=== PATIENT | male | born 1985 | race Two or more races ===

== ENCOUNTER 2020-11-17 21:07 | Emergency (ER) | payer SELFPAY ==
[~2020-11-17] VITALS: Ht 177.8 cm; Wt 76.0 kg
[2020-11-17 21:22] VITALS: BP 136/88
[2020-11-17] MEDS ORDERED: NAPR-682 PO (22:23)
[2020-11-17] MEDS ORDERED: METH4TAB2 PO (22:23)
--- NOTE | 2020-11-17 22:23 | PHYS DOC ---
Past Medical History Past Medical History: No Pertinent History Past Surgical History: No Surgical History Smoking Status: Never Smoker Alcohol Use: None General Adult EDM: Chief Complaint: Loss of taste and smell, headache, body, coughing HPI: HPI: 35-year-old male with no significant medical history comes to the emergency department complaining of a flulike illness, he says over the past 2 to 3 days he has had fever, body aches, cough that is nonproductive, dull and throbbing bifrontal headache, loss of taste and smell, fevers, chills, no abdominal or chest pain, no known history of cardiac disease or history of thromboembolism. He was unvaccinated to coronavirus 19 unfortunately Patient is [place]-speaking so history was obtained with a junior automation engineer Review of Systems: Review of Systems: Constitutional: Positive for fever, chills and body aches Eyes: Denies change in visual acuity. [] HENT: Denies nasal congestion or sore throat. [] Respiratory: Positive for cough or shortness of breath. [] Cardiovascular: Denies chest pain or edema. [] GI: Denies abdominal pain, nausea, vomiting, bloody stools or diarrhea. [] : Denies dysuria. [] Musculoskeletal: Denies back pain or joint pain. [] Integument: Denies rash. [] Neurologic: Positive for headache, no focal weakness or sensory changes. [] Endocrine: Denies polyuria or polydipsia. [] Lymphatic: Denies swollen glands. [] Psychiatric: Denies depression or anxiety. [] Heart Score: C/O Chest Pain: No Risk Factors: Risk Factors: DM, Current or recent (<one month) smoker, HTN, HLP, family history of CAD, obesity. Risk Scores: Score 0 - 3: 2.5% MACE over next 6 weeks - Discharge Home Score 4 - 6: 20.3% MACE over next 6 weeks - Admit for Clinical Observation Score 7 - 10: 72.7% MACE over next 6 weeks - Early Invasive Strategies Allergies: Allergies: Allergies Coded Allergies Type Severity Reaction Last Updated Verified No Known Drug Allergies 11/17/20 No Physical Exam: PE: Gen-well appearing, no acute distress Head: Normocephalic/Atraumatic ENT: atraumatic, PERRLA, EOMI, oropharynx clear Neck: supple, full ROM/strength, no JVD, no nuchal rigidity Lungs: no distress, speaks in full sentences, Clear to auscultation bilaterally CV: reg rate, rhythm, no murmus/rubs/gallops, peripheral pulses equal in all extremities Abdomen: soft/nontender, no guarding/rebound tenderness, no rigidity, non distended, normoactive bowel sounds Musculoskeletal: full ROM/strength in all extremities, atraumatic, no swelling Back: full range of motion/strength Skin: intact, no rashes Lymph: no gross SANDRITA Neuro: alert and oriented x 4, CN 2-12 grossly intact, Motor strength is 5/5 in all extremities, no focal sensory deficits, no focal ataxia, ambulatory with steady gait Psych: normal mood/affect Current Patient Data: Labs: Laboratory Tests Test 11/17/20 21:36 SARS-CoV-2 Antigen (Rapid) Negative (NEGATIVE) Vital Signs: Vital Signs Date Time Temp Pulse Resp B/P (MAP) Pulse Ox O2 Delivery O2 Flow Rate FiO2 11/17/20 21:22 98.2 82 16 136/88 99 Room Air 98.2 EKG: EKG: [] Radiology/Procedures: Radiology/Procedures: [] Course & Med Decision Making: Course & Med Decision Making Pertinent Labs and Imaging studies reviewed. (See chart for details) [] 35-year-old male comes to the emergency department with a flulike illness highly suspicious for COVID-19 infection, he is afebrile nontoxic-appearing, differential includes but not limited to influenza, another viral upper respiratory infection, unlikely any acute intracranial bacterial infection, unlikely any intra-abdominal process, unlikely ACS, PE, dissection, exam is benign, O2 sat is 99%, will do a rapid Covid test and will give him some ibuprofen for symptoms as well as some Zofran Reevaluation at 10:30 PM: Patient is feeling better, the Covid test was negative although I am highly suspicious that it is inaccurate so I will order him a PCR test, start him on steroids and antipyretics and refer him to not only quarantine at home for 10 days with to follow-up with primary care Patient was seen in the ED for symptomatology and exam findings concerning for COVID-19 infection and although the rapid antigen test is negative I am sending a PCR out of a high index of suspicion, there is no apparent evidence of any emergency medical pathology at this time, patient was advised follow-up with their primary care provider /physician in the next 24-48 hours and to return to the ED before then if any new or worsening / concerning symptoms had developed. All questions and concerns were addressed at time of disposition Joe Disclaimer: Joe Disclaimer: This electronic medical record was generated, in whole or in part, using a voice recognition dictation system. Departure Departure Impression: Primary Impression: Fever Qualified Codes: R50.9 - Fever, unspecified Additional Impressions: Loss of taste Cough Disposition: HOME / SELF CARE / HOMELESS Condition: IMPROVED Referrals: WAGNER CASTORENA MD 2 days Patient Instructions: Cough, Adult, Fever Additional Instructions: I am suspicious that you have COVID-19, the rapid test here was normal but I am going to send a more sensitive test that should result tomorrow, I recommend that you isolate for the next 10 days, please follow-up with your primary care doctor in the next 48 hours, return to the ER before then if any new or worsening/concerning symptoms develop Scripts Methylprednisolone (MEDROL) 4 Mg Tab.ds.pk 1 PKG PO UD for inflammation, #1 PKG Prov: MARY LAM MD 11/17/20 Naproxen Sodium (ANAPROX DS) 550 Mg Tablet 1 TAB PO PRN BID PRN for PAIN for 7 Days, #15 TAB 0 Refills Prov: MARY LAM MD 11/17/20 MARY LAM MD Nov 17, 2020 22:23
== END 2020-11-17 22:35 ==
LOC: ER 21:07
DX: R51.9 Headache, unspecified (principal); R43.8 Other disturbances of smell and taste; R50.9 Fever, unspecified; R05 Cough; Z20.822 Contact with and (suspected) exposure to COVID-19
CPT/HCPCS: 87426; 99283